=== PATIENT | male | born 1995 | race Caucasian/White ===

== ENCOUNTER 2025-02-24 15:50 | Emergency (ER) | payer SELFPAY ==
[~2025-02-24] VITALS: Ht 177.8 cm; Wt 56.7 kg
[2025-02-24 16:26] LABS: PLATELET COUNT (AUTO) 237 K/uL (150-450); RED BLOOD CELL COUNT(AUTO) 4.57 MIL/uL (4.5-6.0); RED CELL DISTRIBUTION WIDTH 13.3 % (11.5-15.0); WHITE BLOOD COUNT (AUTO) 5.9 K/uL (4.3-11.0)
[2025-02-24 16:33] LABS: CALCIUM, SERUM 8.8 mg/dL (8.5-10.1); CREATININE 0.9 mg/dL (0.6-1.3); SODIUM SERUM 138 mmol/L (136-145); UREA NITROGEN, BLOOD 9 mg/dL (7-18)
[2025-02-24 17:10] VITALS: BP 140/90; TEMP 98.7; O2SAT 99
== END 2025-02-24 17:10 | disposition home or self-care (01) ==
LOC: ER 16:00
DX: S01.311D Laceration without foreign body of right ear, subsequent encounter (principal); R07.89 Other chest pain; F41.9 Anxiety disorder, unspecified; Z48.02 Encounter for removal of sutures; X58.XXXD Exposure to other specified factors, subsequent encounter
CPT/HCPCS: 36415; 71045-TC; 80048-TC; 84484-TC; 85025-TC